=== PATIENT | female | born 1955 | race African-American/Black ===

== ENCOUNTER 2021-08-04 12:02 | Emergency (ER) | payer BC ==
--- OUTSIDE RECORDS SUMMARY | 2021-08-04 12:05 | XMS REPORT | Continuity of Care Document ---
:1955 Author Organization [facility] t Address [address] [place] [address] [address] [place] [address] Care Team Providers Name Role Phone LETA, Ana Primary Care Physician Unavailable LETA, A Attending Clinician Unavailable RADIOLOGY Attending Clinician Unavailable Radiology Attending Clinician Unavailable Leta HUBER, A Attending Clinician Doctor Unassigned, Name Attending Clinician Unavailable SHERI PARRA Admitting Clinician Unavailable Payers Payer Name Policy Type Policy Number Effective Date Expiration Date S [facility] [id number] 2014 00:00:00 Problems Condition Condition Condition Status Onset Resolution Last Treating Co mments Source Name Details Category Date Date Treatment Clinician Date History of History of Disease Active U nivers thyroid thyroid 05-21 ity of nodule nodule 00:00: [place] [address] Medical Branch Other Other Disease Active Overview: Univer s specified specified 05-21 Formattin i ty of anemias anemias 00:00: g of this [place] [address] note Medical might be Branch different from the original. mild anemia Allergies, Adverse Reactions, Alerts Allergy Allergy Status Severity Reaction(s) Onset Inactive Treating Comm ents Source Name Type Date Date Clinician NO KNOWN Drug Active Univers ALLERGIE Class ity of S [place] [facility] Social History Social Habit Start Date Stop Date Quantity Comments Source History SDOH University o f Alcohol Frequency [place] [facility] History SDOH University o f Alcohol Std [place] [facility] Drinks [facility] History SDOH University o f Alcohol Binge [place] [facility] Exposure to Not sure University of SARS-CoV-2 [place] [facility] (event) [facility] Alcohol intake 2021-05-21 2021-05-21 Current drinker Unive rsity of 00:00:00 00:00:00 of alcohol [place] [facility] (finding) Branch Tobacco use and 2021-05-01 2021-05-01 Never used Universit y of exposure 00:00:00 00:00:00 [facility] Branch Alcohol Comment 2021-05-01 2021-05-01 small amount of Univ ersity of 00:00:00 00:00:00 wine for anemia [place] [facility] Sex [birth year] Universit y of 00:00:00 00:00:00 [place] [facility] Smoking Status Start Date Stop Date Source Never smoker [facility] Medical Branch Medications Ordered Filled Start Stop Current Ordering Indication Dosage Frequency Signature Comments Components Source Medication Medication Date Date Medication? Clinician (SIG) Name Name calcium Yes Take by Univer s carbonate/v 2-17 mouth. ity of itamin D3 10:53: [place] (VITAMIN 39 Medical D-3 ORAL) Branch calcium Yes Take by Univer s carb/magnes 2-17 mouth. ity of ium oxid/D3 10:53: [place] (CALCIUM 39 Medical MAGNESIUM + Branch D ORAL) elderberry Yes Take by Uni vers fruit 2-17 mouth. ity of (ELDERBERRY 10:53: [place] ORAL) 39 Medical Branch MULTIVITAMI Yes Take by Un radha N ORAL 2-17 mouth. ity of 10:53: [place] [id number] Medical Branch levocarniti Yes Take by Un radha ne 2-17 mouth. ity of (L-CARNITIN 10:53: [place] E ORAL) 39 Medical Branch COQ10, Yes Take by [facility] UBIQUINOL, 2-17 mouth. ity of ORAL 10:53: [place] [address] Medical Branch calcium Yes Take by Univer s carbonate/v 2-17 mouth. ity of itamin D3 10:53: [place] (VITAMIN 39 Medical D-3 ORAL) Branch calcium Yes Take by Univer s carb/magnes 2-17 mouth. ity of ium oxid/D3 10:53: [place] (CALCIUM 39 Medical MAGNESIUM + Branch D ORAL) elderberry Yes Take by Uni vers fruit 2-17 mouth. ity of (ELDERBERRY 10:53: [place] ORAL) 39 Medical Branch MULTIVITAMI 0 Yes Take by Un radha N ORAL 2-17 mouth. ity of 10:53: [place] 39 Medical Branch levocarniti 0 Yes Take by Un radha ne 2-17 mouth. ity of (L-CARNITIN 10:53: [place] E ORAL) 39 Medical Branch COQ10, 0 Yes Take by Univers UBIQUINOL, 2-17 mouth. ity of ORAL 10:53: [place] 39 Medical Branch calcium 0 Yes Take by Univer s carbonate/v 2-17 mouth. ity of itamin D3 10:53: [place] (VITAMIN 39 Medical D-3 ORAL) Branch calcium 0 Yes Take by Univer s carb/magnes 2-17 mouth. ity of ium oxid/D3 10:53: [place] (CALCIUM 39 Medical MAGNESIUM + Branch D ORAL) elderberry 0 Yes Take by Uni vers fruit 2-17 mouth. ity of (ELDERBERRY 10:53: [place] ORAL) 39 Medical Branch MULTIVITAMI 0 Yes Take by Un radha N ORAL 2-17 mouth. ity of 10:53: [place] 39 Medical Branch levocarniti 0 Yes Take by Un radha ne 2-17 mouth. ity of (L-CARNITIN 10:53: [place] E ORAL) 39 Medical Branch COQ10, 0 Yes Take by Univers UBIQUINOL, 2-17 mouth. ity of ORAL 10:53: [place] 39 Medical Branch calcium 0 Yes Take by Univer s carbonate/v 2-17 mouth. ity of itamin D3 10:53: [place] (VITAMIN 39 Medical D-3 ORAL) Branch calcium 0 Yes Take by Univer s carb/magnes 2-17 mouth. ity of ium oxid/D3 10:53: [place] (CALCIUM 39 Medical MAGNESIUM + Branch D ORAL) elderberry 0 Yes Take by Uni vers fruit 2-17 mouth. ity of (ELDERBERRY 10:53: [place] ORAL) 39 Medical Branch MULTIVITAMI 0 Yes Take by Un radha N ORAL 2-17 mouth. ity of 10:53: [place] 39 Medical Branch levocarniti 0 Yes Take by Un radha ne 2-17 mouth. ity of (L-CARNITIN 10:53: [place] E ORAL) 39 Medical Branch COQ10, 0 Yes Take by [facility], 2-17 mouth. ity of ORAL 10:53: [place] 39 [facility] Branch Immunizations Ordered Filled Immunization Date Status Comments Sour e Immunization Name Name SARS-COV-2 COVID-19 2020-06-22 Completed Unive rsity of PFIZER VACCINE 00:00:00 [facility] SARS-COV-2 COVID-19 2020-06-22 Completed Unive rsity of PFIZER VACCINE 00:00:00 [facility] SARS-COV-2 COVID-19 2020-06-22 Completed Unive rsity of PFIZER VACCINE 00:00:00 [facility] SARS-COV-2 COVID-19 2020-06-22 Completed Unive rsity of PFIZER VACCINE 00:00:00 [facility] SARS-COV-2 COVID-19 2020-06-01 Completed Unive rsity of PFIZER VACCINE 00:00:00 [facility] SARS-COV-2 COVID-19 2020-06-01 Completed Unive rsity of PFIZER VACCINE 00:00:00 [facility] SARS-COV-2 COVID-19 2020-06-01 Completed Unive rsity of PFIZER VACCINE 00:00:00 [facility] SARS-COV-2 COVID-19 2020-06-01 Completed Unive rsity of PFIZER VACCINE 00:00:00 [facility] Vital Signs Vital Name Observation Time Observation Value Comments Source Systolic blood 2021-05-01 15:58:00 133 mm[Hg] Univer sity of pressure [facility] Diastolic blood 2021-05-01 15:58:00 83 mm[Hg] Unive rsity of pressure [facility] Heart rate 2021-05-01 15:58:00 73 /min [facility] Body temperature 2021-05-01 15:58:00 36.67 Temi [facility] ersity [facility] Respiratory rate 2021-05-01 15:58:00 18 /min [facility] height 2021-05-01 15:58:00 162.6 cm [facility] Body weight 2021-05-01 15:58:00 77.656 kg [facility] BMI 2021-05-01 15:58:00 29.39 kg/m2 Universi ty of [facility] Oxygen saturation in 2021-05-01 15:58:00 98 /min University Arterial blood by [facility] Pulse oximetry Branch Procedures Procedure Date / Time Performed Performing Clinician [facility] e EXTERNAL PROVIDER 2021-06-10 05:01:00 Doctor Francheska, No Univ [facility] RECORDS Name [facility] Branch Encounters Start End Encounter Admission Attending Care Care Encounter Source Date/Time Date/Time Type Type Clinicians Facility Department ID 2021-10-31 2021-10-31 Outpatient R LETA [facility] [id number] Univers 10:00:00 10:00:00 KIMBERLY ity of [facility] 2021-07-25 2021-07-25 Outpatient R RADIOLOGY [facility] [id number] Univers 14:25:33 23:59:00 ity of [facility] 2021-07-25 2021-07-25 Hospital Radiology [facility] [id number] Univers 14:25:33 23:59:00 Encounter [place] [id number] [id number] [id number] [facility] 800 Branch 2021-07-09 2021-07-09 Patient Leta [facility] [id number] Univers 00:00:00 00:00:00 Secure Msg Kimberly ISAAC [id number] [id number] [id number] Ri dical [facility] 231 Branch BUILDING 2021-06-10 2021-06-10 Orders Doctor KIT [id number] Univers 00:00:00 00:00:00 Only Unassigned, SANJAY [id number] ity of [place] [facility] [id number] David as [id number] [facility] 009 Branch 2021-05-01 2021-05-01 Office [place], [facility] [id number] Univers 10:00:00 11:22:23 Visit Kimberly ISAAC [id number] ity of [place] [id number] Kranthi rob PROFESSIO [id number] Ri dical [place] 231 Branch BUILDING Results This patient has no known results.
--- NOTE | 2021-08-04 13:49 | RAD REPORT ---
EXAM DESCRIPTION: US - Extremity Venous Uni Ltd - 08/04/2021 1:39 pm CLINICAL HISTORY: PAIN COMPARISON: None. TECHNIQUE: Real-time sonographic evaluation of the left lower extremity deep venous system was perfo rmed. FINDINGS: Normal compressibility, flow augmentation, phasic flow and spontaneous flow are identified in the left lower extremity common femoral, superficial femoral, popliteal and posterior tibial vein s. No intraluminal filling defects seen. Small groin lymph nodes are seen. No mass or abnormal fluid collection in the soft tissues. IMPRESSION: No DVT in the left lower extremity.
--- NOTE | 2021-08-04 14:26 | RAD REPORT ---
EXAM DESCRIPTION: RAD - Knee Left 3 View - 08/04/2021 1:35 pm CLINICAL HISTORY: PAIN COMPARISON: No comparisons FINDINGS: No fracture, dislocation or periosteal reaction.No joint effusion seen. There is slight tr i compartment narrowing. Medial and lateral compartment marginal spurs are present minimal spurring a long the patella articular margins. No soft tissue abnormality. IMPRESSION: Knee joint degenerative change as detailed. No acute finding. Clinical concerns for internal derangement or occult bony injury could be further assessed with MR im aging.
--- NOTE | 2021-08-04 14:50 | EDPHYS ---
Physician Documentation [facility] Name: Ofelia Rock Age: 65 yrs Sex: Female : 1955 Arrival Date: 08/04/2021 Time: 12:03 Bed DIS2 Private MD: Sang Orta T ED Physician Jesse Mei HPI: 08/04 13:05 This 65 yrs old Black Female presents to ER via Ambulatory with complaints of Knee Pain cp - swelling. 13:05 The patient presents with pain, that is acute, swelling, tenderness. The complaints cp affect the lateral aspect of left knee, medial aspect of left knee and left knee. Context: resulted from an unknown cause, the patient can fully bear weight, the patient is able to ambulate, with moderate difficulty, Problem is a result from a previous injury: No. Onset: The symptoms/episode began/occurred yesterday. 13:05 Associated signs and symptoms: Pertinent positives: weakness, left knee gave out cp causing her to almost fall when she stood up, Pertinent negatives fever, numbness, warmth. Historical: - Allergies: 12:32 No Known Allergies; jd3 - Home Meds: 12:32 None [Active]; jd3 - PMHx: 12:32 None; jd3 - PSHx: 12:32 Total abdominal hysterectomy; section; Thyroid Nodule; jd3 - Immunization history:: Adult Immunizations up to date. - Social history:: Smoking status: Patient denies any tobacco usage or history of. ROS: 13:10 MS/extremity: Positive for pain, swelling, tenderness, of the left knee, weakness, cp Negative for injury or acute deformity, decreased range of motion, paresthesias. 13:10 Constitutional: Negative for body aches, chills, fever. cp 13:10 Neck: Negative for pain with movement, pain at rest, stiffness. 13:10 Cardiovascular: Negative for chest pain, edema, palpitations. 13:10 Respiratory: Negative for cough, shortness of breath, wheezing. 13:10 Abdomen/GI: Negative for abdominal pain, nausea, vomiting, and diarrhea. 13:10 Back: Negative for pain at rest, pain with movement. 13:10 Neuro: Negative for altered mental status, headache, numbness. 13:10 All other systems are negative. Exam: 13:15 Constitutional: The patient appears in no acute distress, alert, awake, non-toxic, well cp developed, well nourished, uncomfortable. 13:15 Head/Face: Normocephalic, atraumatic. cp 13:15 Neck: ROM/movement: is normal, is supple, without pain, no range of motions limitations. 13:15 Chest/axilla: Inspection: normal. 13:15 Cardiovascular: Rate: normal. 13:15 Respiratory: the patient does not display signs of respiratory distress, Respirations: normal. 13:15 Abdomen/GI: Exam negative for discomfort, distension, guarding, Inspection: abdomen appears normal. 13:15 Back: pain, is absent, ROM is normal. 13:15 Musculoskeletal/extremity: Extremities: noted in the left knee: pain, swelling, tenderness along medial and lateral joint line, There is no evidence of decreased ROM, ROM: limited passive range of motion due to pain, in the left knee, Pulses: noted to be 2+ in the left dorsalis pedis artery, the left leg Sensation intact. overlying skin w/o erythema noted. Vital Signs: 12:30 BP 153 / 80; Pulse 74; Resp 18; Temp 98.2; Pulse Ox 100% ; Weight 71.21 kg; Height 5 jd3 ft. 4 in. (162.56 cm); Pain 8/10; 12:30 Body Mass Index 26.95 (71.21 kg, 162.56 cm) jd3 MDM: 14:42 Patient medically screened. cp 14:48 Data reviewed: vital signs, nurses notes, radiologic studies, plain films, ultrasound. cp 14:48 Differential diagnosis: closed fracture, tendonitis, meniscus injury, septic joint. cp Counseling: I had a detailed discussion with the patient and/or guardian regarding: the historical points, exam findings, and any diagnostic results supporting the discharge/admit diagnosis, radiology results, the need for outpatient follow up, a orthopedic surgeon, to return to the emergency department if symptoms worsen or persist or if there are any questions or concerns that arise at home. Response to treatment: the patient's symptoms have mildly improved after treatment, and as a result, I will discharge patient. 08/04 13:06 Order name: XRAY Knee LEFT 3 view; Complete Time: 14:53 08/04 14:53 Interpretation: Report reviewed. 08/04 13:06 Order name: US Extremity Venous Unilateral Ltd; Complete Time: 14:53 cp 08/04 14:53 Interpretation: Report reviewed. cp 08/04 14:49 Order name: Crutches; Complete Time: 15:04 cp 08/04 14:49 Order name: Jagdish wrap-joint; Complete Time: 15:04 cp Administered Medications: 14:59 Drug: Tylenol 650 mg Route: PO; iw 15:00 Drug: Ibuprofen 800 mg Route: PO; iw Disposition: 18:21 Co-signature as Attending Physician, Jesse Mei DO I was immediately available on-site ms3 in the Emergency Department for consultation in the care of the patient.. Disposition Summary: 08/04/21 14:49 Discharge Ordered Location: Home cp Problem: new cp Symptoms: have improved cp Condition: Stable cp Diagnosis - Pain in left knee cp Followup: cp - With: Duarte Link MD - When: 2 - 3 days - Reason: Recheck today's complaints Discharge Instructions: - Discharge Summary Sheet cp - Elastic Bandage and RICE Therapy cp - Acute Knee Pain, Adult cp - Form - Excuse from Work, School, or Physical Activity cp Forms: - Work release form iw - Medication Reconciliation Form cp - Thank You Letter cp - Antibiotic Education cp - Prescription Opioid Use cp Prescriptions: - Diclofenac Sodium 75 mg Oral tablet,delayed release (DR/EC) - take 1 tablet by ORAL route 2 times per day; 20 tablet; Refills: 0, Product cp Selection Permitted Signatures: Dispatcher [employer] Lani Canchola RN RN iw Hernan Riley PA PA cp Jag Li RN RN jd3 Jesse Mei DO DO ms3
--- NOTE | 2021-08-04 14:50 | ER ---
Nurse's Notes [facility] Name: Ofelia Rock Age: 65 yrs Sex: Female : 1955 Arrival Date: 08/04/2021 Time: 12:03 Bed DIS2 Private MD: Sang Orta T Diagnosis: Pain in left knee Presentation: 08/04 12:30 Chief complaint: Patient states: Left knee pain that started Wednesday night. She tried jd3 to stand up and almost fell. Coronavirus screen: Vaccine status: Patient reports receiving the 2nd dose of the covid vaccine. Client denies travel out of the [place] in the last 14 days. Ebola Screen: Patient denies travel to an Ebola-affected area in the 21 days before illness onset. Initial Sepsis Screen: Does the patient meet any 2 criteria? No. Patient's initial sepsis screen is negative. Does the patient have a suspected source of infection? No. Patient's initial sepsis screen is negative. Risk Assessment: Do you want to hurt yourself or someone else? Patient reports no desire to harm self or others. Onset of symptoms was August 02, 2021. 12:30 Method Of Arrival: Ambulatory jd3 12:30 Acuity: MAREK 4 jd3 Triage Assessment: 12:32 General: Appears in no apparent distress. Behavior is calm, cooperative. Pain: jd3 Complains of pain in left knee. Neuro: Level of Consciousness is awake, alert, obeys commands, Oriented to person, place, time, situation, Speech is normal. Respiratory: Airway is patent Respiratory effort is even, unlabored, Respiratory pattern is regular, symmetrical. Historical: - Allergies: 12:32 No Known Allergies; jd3 - Home Meds: 12:32 None [Active]; jd3 - PMHx: 12:32 None; jd3 - PSHx: 12:32 Total abdominal hysterectomy; section; Thyroid Nodule; jd3 - Immunization history:: Adult Immunizations up to date. - Social history:: Smoking status: Patient denies any tobacco usage or history of. Screenin:33 Abuse screen: Denies threats or abuse. Denies injuries from another. Nutritional jd3 screening: No deficits noted. Tuberculosis screening: No symptoms or risk factors identified. Fall Risk None identified. Vital Signs: 12:30 BP 153 / 80; Pulse 74; Resp 18; Temp 98.2; Pulse Ox 100% ; Weight 71.21 kg; Height 5 jd3 ft. 4 in. (162.56 cm); Pain 8/10; 12:30 Body Mass Index 26.95 (71.21 kg, 162.56 cm) jd3 ED Course: 12:03 Patient arrived in ED. as 12:04 Sang Orta MD is Private Physician. as 12:13 [facility] cp 12:13 Jesse Mei DO is Attending Physician. cp 12:32 Triage completed. jd3 12:32 Arm band placed on right wrist. jd3 13:37 XRAY Knee LEFT 3 view In Process Unspecified. EDMS 13:41 US Extremity Venous Unilateral Ltd In Process Unspecified. EDMS 14:49 Duarte Link MD is Referral Physician. cp 15:06 Lani Joe, RN is Primary Nurse. iw Administered Medications: 14:59 Drug: Tylenol 650 mg Route: PO; iw 15:00 Drug: Ibuprofen 800 mg Route: PO; iw Outcome: 14:49 Discharge ordered by MD. cp 15:12 Patient left the ED. iw Signatures: Dispatcher [employer] Geena Peng Irene, RN RN iw Hernan Riley PA PA cp Davies, Jonathon RN RN jd3
[2021-08-04] MEDS ORDERED: IBUPROFEN 400 MG TAB ONE (14:58)
[2021-08-04] MEDS ORDERED: ACETAMINOPHEN 325 MG TABLET ONE (14:58)
[2021-08-04 15:34] VITALS: BP 153/80; TEMP 98.2; O2SAT 100
== END 2021-08-04 15:12 | disposition home or self-care (01) ==
LOC: ER 12:02
DX: M25.562 Pain in left knee (principal)
CPT/HCPCS: 93971; 99283